=== PATIENT | male | born 1970 | race Caucasian/White ===

== ENCOUNTER 2020-01-11 14:02 | Emergency (ER) | payer BC ==
[~2020-01-11] VITALS: Ht 182.9 cm; Wt 89.8 kg
--- NOTE | 2020-01-11 14:35 | Emergency Department Note ---
History of Present Illnes History of Present Illness Chief Complaint: Abdominal Complaints History of Present Illness This is a 49 year old male, c/o left side abd pain after lifted a heavy refrigerator about 1 week ago, no n/v, normal BM. Hx extensive abd surgeries due to trauma 20 year ago . Historian: Patient Onset (how long ago): week(s) Radiation: Reports non-radiation Onset quality: gradual Progression: unchanged Chronicity: new Relieving factors: immobilization Exacerbating factors: movement Associated symptoms: Reports denies other symptoms Treatments prior to arrival: none Past Medical/Family History Physician Review I have reviewed the patient's past medical and family history. Any updates have been documented here. Past Medical History Recent Fever: No Clinical Suspicion of Infectio: No New/Unexplained Change in Ment: No Other Medical History: extensive bowel surgeries Other Surgery: laparotmy Social History Smoking Cessation: Unknown if ever smoked Alcohol Use: Social Any Illegal Drug Use: No TB Exposure/Symptoms: No Physically hurt or threatened: No Family History Family history of heart diseas: No Review of Systems Review of Systems Constitutional: Reports no symptoms EENTM: Reports no symptoms Cardiovascular: Reports no symptoms Respiratory: Reports no symptoms Gastrointestinal: Reports as per HPI, Reports abdominal pain Genitourinary: Reports no symptoms Musculoskeletal: Reports no symptoms Integumentary: Reports no symptoms Neurological: Reports no symptoms Psychological: Reports no symptoms Endocrine: Reports no symptoms Hematological/Lymphatic: Reports no symptoms Physical Exam Related Data Allergies: Coded Allergies: No Known Allergies (Unverified , 01/11/20) Vital signs reviewed: Yes Physical Exam CONSTITUTIONAL Constitutional: Present well-developed, Present well-nourished HENT HENT: Present normocephalic, Present atraumatic, Present oropharynx clear/moist, Present nose normal HENT L/R: Present left ext ear normal, Present right ext ear normal EYES Eyes: Reports PERRL, Reports conjunctivae normal NECK Neck: Present ROM normal PULMONARY Pulmonary: Present effort normal, Present breath sounds normal CARDIOVASCULAR Cardiovascular: Present regular rhythm, Present heart sounds normal, Present capillary refill normal, Present normal rate GASTROINTESTINAL Abdominal: Present soft, Present bowel sounds normal, Present tender (to light touch, scars and hernia seen) GENITOURINARY Genitourinary: Present exam deferred SKIN Skin: Present warm, Present dry MUSCULOSKELETAL Musculoskeletal: Present ROM normal NEUROLOGICAL Neurological: Present alert, Present oriented x 3, Present no gross motor or sensory deficits PSYCHOLOGICAL Psychological: Present mood/affect normal, Present judgement normal Results Laboratory Lab results reviewed: Yes Imaging Imaging results reviewed: Yes Impressions colitis Assessment & Plan Medical Decision Making MDM SBO, hernia Reassessment Reassessment no n/v, taking PO well Assessment & Plan Final Impression: (1) Enterocolitis (2) Abdominal wall pain Depart Disposition: HOME, SELF-CARE Physician Attestation Provider Attestation no acute abdomen, no fever, normal WBC, no n/v, I do not think patient needs antibiotic. IVONNE COE MD Jan 11, 2020 14:35
[2020-01-11] MEDS ORDERED: SODIUM CHLORIDE 0.9% 1000ML 1,000 ML IV STA (15:37)
[2020-01-11] MEDS ORDERED: SODIUM CHLORIDE 0.9% 1000ML 1,000 ML ONE (15:57)
--- NOTE | 2020-01-11 16:51 | Diagnostic Imaging Report ---
CT of the abdomen and pelvis with contrast TECHNIQUE: CT of the abdomen and pelvis WITH intravenous contrast and WITHOUT oral contrast. Dose modulation, iterative reconstruction, and/or weight-based adjustment of the mA/kV was utilized to reduce the radiation dose to as low as reasonably achievable. IV CONTRAST: 100 mL of Isovue-370 ORAL CONTRAST: None RADIATION DOSE: Total DLP: 732 mGy*cm COMPLICATIONS: None INDICATION: ^abd pain, left sided hernia ^20200111 ^1637. COMPARISON: None. FINDINGS: LOWER THORAX: Unremarkable. HEPATOBILIARY: No focal hepatic lesions. Gallbladder is unremarkable. No biliary ductal dilatation. SPLEEN: No splenomegaly. PANCREAS: No focal masses or ductal dilatation. ADRENALS: No adrenal nodules. KIDNEYS/URETERS: No hydronephrosis, stones, or masses. PELVIC ORGANS/BLADDER: Unremarkable. PERITONEUM/RETROPERITONEUM: No free air or fluid. Tiny fat-containing umbilical hernia is noted. No bowel loops are identified within the hernia. Tiny fat-containing inguinal hernias are noted. LYMPH NODES: No lymphadenopathy. VESSELS: Unremarkable. GI TRACT: Lack of oral contrast limits evaluation. Descending and sigmoid colon are decompressed limiting evaluation. Stomach is moderately distended and unremarkable. Postoperative changes are identified from proximal jejunal anastomosis. Negative for bowel obstruction. No surrounding inflammatory changes are identified. There are multiple fluid-filled mildly thickened left mid abdominal small bowel loops. Normal appendix is noted. BONES AND SOFT TISSUES: Negative for acute osseous abnormality. A few Schmorl's nodes are identified with mild to moderate multilevel degenerative changes throughout the lower thoracic and lumbar spine. IMPRESSION: 1. Multiple fluid-filled small bowel loops in the left midabdomen with mild wall thickening are concerning for possible and a right is. No surrounding inflammatory changes or drainable fluid collection is identified. Primary postsurgical anastomosis of the jejunal small bowel loops is noted. 2. Tiny fat-containing umbilical hernia and small fat-containing bilateral inguinal hernias are noted. No bowel loops are identified within these hernias. Signed by: Rip Salcido MD on 01/11/2020 4:48 PM
[2020-01-11] MEDS ORDERED: SODIUM CHLORIDE 0.9% 50ML 50 ML ONE (16:59)
[2020-01-11] MEDS ORDERED: IOPAMIDOL 370 MG/ML 200 ML INFUS..BTL INJ ONE (16:59)
--- OUTSIDE RECORDS SUMMARY | 2020-01-13 16:20 | XMS REPORT | Continuity of Care Document ---
Author Author [facility] t Organization [facility] Address [address] [place] [id number] Phone Unavailable Care Team Providers Care Hand Carver Name Role Phone NO, PCP PCP Unavailable SARAVANAN, T CORONADO Attphys Unavailable Payers Payer Name Policy Type Policy Number Effective Date Expiration Date [employer] [facility] Ppo [id number] [facility] Problems Condition Name Condition Details Condition Category Status Onset Date Resolution Date Last Treatment Date Treating Clinician Comments Source Enterocolitis Problem Active [facility] Abdominal wall pain Problem Active [facility] Allergies, Adverse Reactions, Alerts This patient has no known allergies or adverse reactions. Social History Social Habit Start Date Stop Date Quantity Comments Source Sex Assigned At 1970 00:00:00 1970 00:00:00 Male [facility] Medications This patient has no known medications. Vital Signs Vital Name Observation Time Observation Value Comments Source Weight 2020-01-11 14:10:00 198 [lb_av] [facility] BMI (Body Mass Index) 2020-01-11 14:10:00 26.9 kg/m2 [facility] Procedures This patient has no known procedures. Plan of Care Planned Activity Planned Date Details Comments Source Instructions Abdominal Pain - Adult [facility] Encounters Start Date/Time End Date/Time Encounter Type Admission Type Attendi [facility] Care Department Encounter ID Source 2020-01-11 14:05:00 2020-01-11 17:20:00 Departed Emergency Room IVONNE COE [facility] [id number] [facility] Results Test Description Test Time Test Comments Results Result Comments Source CT ABD/PEL WITH CONTRAST-HOPD 2020-01-11 16:43:00 [facility] [address] [address] Patient Name: SHERRIE LAWTON MR #: [id number] : 1970 Age/Sex: 49/M Req #: [id number] Adm Physician: Ordered by: IVONNE COE MD Report #: [id number] Location: [facility] Room/Bed: Procedure: [id number] HOPD/CT ABD/PEL WITH CONTRAST-HOPD Exam Date: 01/11/20 Exam Time: 1637 REPORT STATUS: Signed CT of the abdomen and pelvis with contrast TECHNIQUE: CT of the abdomen and pelvis WITH intravenous contrast and WITHOUT oral contrast. Dose modulation, iterative reconstruction, and/or weight-based adjustment of the mA/kV was utilized to reduce the radiation dose to as low as reasonably achievable. IV CONTRAST: 100 mL of Isovue-370 ORAL CONTRAST: None RADIATION DOSE: Total DLP: 732 mGy*cm COMPLICATIONS: None INDICATION: abd pain, left sided hernia [id number]. COMPARISON: None. FINDINGS: LOWER THORAX: Unremarkable. HEPATOBILIARY: No focal hepatic lesions. Gallbladder is unremarkable. No biliary ductal dilatation. SPLEEN: No splenomegaly. PANCREAS: No focal masses or ductal dilatation. ADRENALS: No adrenal nodules. KIDNEYS/URETERS: No hydronephrosis, stones, or masses. PELVIC ORGANS/BLADDER: Unremarkable. PERITONEUM/RETROPERITONEUM: No free air or fluid. Tiny fat- containing umbilical hernia is noted. No bowel loops are identified within the hernia. Tiny fat-containing inguinal hernias are noted. LYMPH NODES: No lymphadenopathy. VESSELS: Unremarkable. GI TRACT: Lack of oral contrast limits evaluation. Descending and sigmoid colon are decompressed limiting evaluation. Stomach is moderately distended and unremarkable. Postoperative changes are identified from proximal jejunal anastomosis. Negative for bowel obstruction. No surrounding inflammatory changes are identified. There are multiple fluid-filled mildly thickened left mid abdominal small bowel loops. Normal appendix is noted. BONES AND SOFT TISSUES: Negative for acute osseous abnormality. A few Schmorl's nodes are identified with mild to moderate multilevel degenerative changes throughout the lower thoracic and lumbar spine. IMPRESSION: 1. Multiple fluid-filled small bowel loops in the left midabdomen with mild wall thickening are concerning for possible and a right is. No surrounding inflammatory changes or drainable flu id collection is identified. Primary postsurgical anastomosis of the jejunal small bowel loops is noted. 2. Tiny fat-containing umbilical hernia and small fat-containing bilateral inguinal hernias are noted. No bowel loops are identified within these hernias. Signed by: Checo Salcido MD on 01/11/2020 4:48 PM Dictated By: CHECO SALCIDO MD [id number] Transcribed By: MALATHI on 01/11/20 0219 COPY TO: IVONNE COE MD
== END 2020-01-11 17:20 | disposition home or self-care (01) ==
LOC: FSED 14:05
DX: K52.9 Noninfective gastroenteritis and colitis, unspecified (principal); R10.32 Left lower quadrant pain; X50.0XXA Overexertion from strenuous movement or load, initial encounter; K42.9 Umbilical hernia without obstruction or gangrene; K40.90 Unilateral inguinal hernia, without obstruction or gangrene, not specified as recurrent; F17.210 Nicotine dependence, cigarettes, uncomplicated
CPT/HCPCS: 74177; 99284; J7030; Q9967